=== PATIENT | male | born 1955 | race Caucasian/White ===

== ENCOUNTER 2021-06-14 21:20 | Inpatient (IN) | payer OTHER ==
[2021-06-15] MEDS ORDERED: Dextrose 50% Abboject 50 ML SYRINGE IVP PRN (02:45)
[2021-06-15] MEDS ORDERED: Dextrose 5% in Water 1,000 ML IV PRN (02:45)
[2021-06-15 05:54] LABS: ALT (SGPT) 24 U/L (8-55); AST (SGOT) 30 U/L (5-34); Albumin 3.3 g/dL (3.4-4.8); Alkaline Phosphatase 91 U/L (40-110); Anion Gap 16 mmol/L (10-20); BUN (Urea Nitrogen) 61 mg/dL (8.4-25.7); Bilirubin, Total 0.3 mg/dL (0.2-1.2); Calc. Creatinine Clearance 35 mL/min (70-130); Calcium 8.4 mg/dL (7.8-10.44); Carbon Dioxide 24 mmol/L (23-31); Chloride 93 mmol/L (98-107); Globulin 3.3 g/dL (2.4-3.5); Glucose 79 mg/dL (80-115); Potassium 3.6 mmol/L (3.5-5.1); Protein, Total 6.6 g/dL (5.8-8.1); Sodium 129 mmol/L (136-145)
[2021-06-15 05:55] LABS: Band 15 % (5-11); Hemoglobin 11.3 g/dL (14.0-18.0); Lymphocytes 20 % (21-51); MDiff Complete? YES; Mean Corpuscular HGB CONC 33.5 g/dL (32.0-36.0); Mean Corpuscular Hemoglobin 28.8 pg (27.0-31.0); Mean Corpuscular Volume 86.2 fL (78.0-98.0); Mean Platelet Volume 6.6 fL (7.4-10.4); Metamyelocyte 1 % (0-0); Monocytes 6 % (0-10); Neutrophil 58 % (42-75); Platelet Count 140 thou/uL (130-400); Platelet Morphology Comment Appears Adequate; RBC Distribution Width 11.5 % (11.5-14.5); RBC Morphology Normal; Red Blood Cell (RBC) Count 3.91 mill/uL (4.70-6.10); White Blood Cell (WBC) Count 3.9 thou/uL (4.8-10.8)
[2021-06-15] MEDS ORDERED: Losartan Potassium 50 MG TAB PO SCH (09:00)
[2021-06-15] MEDS ORDERED: Hydrochlorothiazide 25 MG TAB PO SCH (09:00)
[2021-06-15] MEDS: glyBURIDE 5 MG TAB PO SCH ×2 (10:05→16:16)
[2021-06-15] MEDS: FLUoxetine HCl 20 MG CAP PO SCH (10:05)
[2021-06-15] MEDS: Carvedilol 6.25 MG TAB PO SCH ×2 (10:05→21:09)
[2021-06-15] MEDS: HumaLOG 300 UNITS/3 ML VIAL SC PRN ×2 (12:28→17:03)
[2021-06-15] MEDS: Lantus 1000 UNITS/10 ML VIAL SC SCH (21:08)
[2021-06-15] MEDS: Zolpidem Tartrate 5 MG TAB PO PRN (21:08)
[2021-06-15] MEDS: OLANZapine 5 MG TAB PO SCH (21:08)
[2021-06-16 06:48] LABS: Anion Gap 16 mmol/L (10-20); BUN (Urea Nitrogen) 72 mg/dL (8.4-25.7); Calc. Creatinine Clearance 33 mL/min (70-130); Calcium 8.2 mg/dL (7.8-10.44); Carbon Dioxide 22 mmol/L (23-31); Chloride 95 mmol/L (98-107); Glucose 76 mg/dL (80-115); Potassium 3.4 mmol/L (3.5-5.1); Sodium 130 mmol/L (136-145)
[2021-06-16] MEDS: glyBURIDE 5 MG TAB PO SCH ×2 (08:17→17:39)
[2021-06-16] MEDS: Carvedilol 6.25 MG TAB PO SCH ×2 (08:17→23:17)
[2021-06-16] MEDS: FLUoxetine HCl 20 MG CAP PO SCH (08:17)
[2021-06-16] MEDS ORDERED: Potassium Chloride 20 MEQ TAB PO SCH (12:00)
[2021-06-16 12:39] LABS: Cardiac Risk 6.2 (Less than 4.5); LDL Cholesterol, Calculated 67 mg/dL
[2021-06-16] MEDS: Sodium Chloride 0.9% 1,000 ML IV SCH ×2 (14:09→23:00)
[2021-06-16] MEDS: Acetaminophen 500 MG TAB PO PRN ×2 (14:10→23:16)
[2021-06-16 18:57] LABS: Triglycerides 160 mg/dL (Less than 150)
[2021-06-16 19:02] LABS: Cholesterol 121 mg/dl (< 200 Desired); HDL Cholesterol 20 mg/dL (>60 Neg Risk)
[2021-06-16] MEDS: Zolpidem Tartrate 5 MG TAB PO PRN (23:16)
[2021-06-16] MEDS: OLANZapine 5 MG TAB PO SCH (23:17)
[2021-06-16] MEDS: Lantus 1000 UNITS/10 ML VIAL SC SCH (23:20)
[2021-06-16] MEDS: HumaLOG 300 UNITS/3 ML VIAL SC PRN (23:22)
[2021-06-17 06:47] LABS: Anion Gap 14 mmol/L (10-20); BUN (Urea Nitrogen) 71 mg/dL (8.4-25.7); Calc. Creatinine Clearance 36 mL/min (70-130); Calcium 8.4 mg/dL (7.8-10.44); Carbon Dioxide 24 mmol/L (23-31); Chloride 95 mmol/L (98-107); Glucose 173 mg/dL (80-115); Potassium 4.2 mmol/L (3.5-5.1); Sodium 129 mmol/L (136-145)
[2021-06-17] MEDS: HumaLOG 300 UNITS/3 ML VIAL SC PRN ×3 (07:18→20:40)
[2021-06-17] MEDS: glyBURIDE 5 MG TAB PO SCH ×2 (08:19→17:30)
[2021-06-17] MEDS: Carvedilol 6.25 MG TAB PO SCH ×3 (08:21→20:12)
[2021-06-17] MEDS: FLUoxetine HCl 20 MG CAP PO SCH (08:22)
[2021-06-17] MEDS: Sodium Chloride 0.9% 1,000 ML IV SCH ×3 (09:20→20:13)
[2021-06-17] MEDS ORDERED: Dexamethasone 4 MG TAB PO SCH (13:45)
[2021-06-17] MEDS: Albuterol Sulfate 2.5 mg/3 ml Neb NEB PRN ×2 (14:02→20:45)
[2021-06-17] MEDS: OLANZapine 5 MG TAB PO SCH (20:12)
[2021-06-17] MEDS: Tamsulosin HCl 0.4 MG CAP PO SCH (20:12)
[2021-06-17] MEDS: Lantus 1000 UNITS/10 ML VIAL SC SCH (20:40)
[2021-06-17] MEDS: Zolpidem Tartrate 5 MG TAB PO PRN (20:46)
[2021-06-17 21:50] LABS: Hemoglobin A1c 11.8 % (4.0-6.0)
[2021-06-18] MEDS: Sodium Chloride 0.9% 1,000 ML IV SCH ×3 (03:47→22:50)
[2021-06-18] MEDS: HumaLOG 300 UNITS/3 ML VIAL SC PRN ×4 (06:03→21:27)
[2021-06-18] MEDS ORDERED: HumaLOG 300 UNITS/3 ML VIAL SC PRN (07:00)
[2021-06-18 07:56] LABS: Anion Gap 15 mmol/L (10-20); BUN (Urea Nitrogen) 66 mg/dL (8.4-25.7); Calc. Creatinine Clearance 42 mL/min (70-130); Calcium 8.3 mg/dL (7.8-10.44); Carbon Dioxide 21 mmol/L (23-31); Chloride 94 mmol/L (98-107); Glucose 438 mg/dL (80-115); Potassium 4.2 mmol/L (3.5-5.1); Sodium 126 mmol/L (136-145)
[2021-06-18] MEDS: Carvedilol 6.25 MG TAB PO SCH ×2 (08:42→21:02)
[2021-06-18] MEDS: FLUoxetine HCl 20 MG CAP PO SCH (08:42)
[2021-06-18] MEDS: Dexamethasone 4 MG TAB PO SCH (08:42)
[2021-06-18] MEDS: glyBURIDE 5 MG TAB PO SCH ×2 (08:43→17:59)
[2021-06-18] MEDS ORDERED: Lantus 1000 UNITS/10 ML VIAL SC SCH (18:45)
[2021-06-18] MEDS: OLANZapine 5 MG TAB PO SCH (20:45)
[2021-06-18] MEDS: Tamsulosin HCl 0.4 MG CAP PO SCH (20:46)
[2021-06-18] MEDS: Acetaminophen 500 MG TAB PO PRN (21:02)
[2021-06-18] MEDS: Zolpidem Tartrate 5 MG TAB PO PRN (21:02)
[2021-06-18] MEDS: Albuterol Sulfate 2.5 mg/3 ml Neb NEB PRN (21:09)
[2021-06-19] MEDS: HumaLOG 300 UNITS/3 ML VIAL SC PRN ×3 (05:31→17:32)
[2021-06-19 08:04] LABS: Anion Gap 13 mmol/L (10-20); BUN (Urea Nitrogen) 57 mg/dL (8.4-25.7); Calc. Creatinine Clearance 47 mL/min (70-130); Calcium 8.7 mg/dL (7.8-10.44); Carbon Dioxide 23 mmol/L (23-31); Chloride 103 mmol/L (98-107); Glucose 291 mg/dL (80-115); Potassium 4.2 mmol/L (3.5-5.1); Sodium 135 mmol/L (136-145)
[2021-06-19] MEDS: Carvedilol 6.25 MG TAB PO SCH ×2 (08:21→21:22)
[2021-06-19] MEDS: Dexamethasone 4 MG TAB PO SCH (08:21)
[2021-06-19] MEDS: FLUoxetine HCl 20 MG CAP PO SCH (08:21)
[2021-06-19] MEDS: glyBURIDE 5 MG TAB PO SCH ×2 (08:21→15:28)
[2021-06-19] MEDS: Sodium Chloride 0.9% 1,000 ML IV SCH (08:22)
[2021-06-19] MEDS ORDERED: Furosemide 40 MG TAB PO SCH (18:00)
[2021-06-19] MEDS ORDERED: Lantus 1000 UNITS/10 ML VIAL SC SCH ×2 (21:00)
[2021-06-19] MEDS: Enoxaparin Sodium 40 MG/0.4 ML SYRINGE SC SCH (21:21)
[2021-06-19] MEDS: Tamsulosin HCl 0.4 MG CAP PO SCH (21:22)
[2021-06-19] MEDS: OLANZapine 5 MG TAB PO SCH (21:23)
[2021-06-19] MEDS: Zolpidem Tartrate 5 MG TAB PO PRN (23:37)
[2021-06-20] MEDS ORDERED: Sodium Chloride 0.9% 10 ML ONE (06:17)
[2021-06-20] MEDS: FLUoxetine HCl 20 MG CAP PO SCH (07:57)
[2021-06-20] MEDS: Dexamethasone 4 MG TAB PO SCH (07:57)
[2021-06-20] MEDS: Carvedilol 6.25 MG TAB PO SCH ×2 (07:58→20:44)
[2021-06-20] MEDS: glyBURIDE 5 MG TAB PO SCH ×2 (07:58→16:24)
[2021-06-20 08:18] LABS: Anion Gap 15 mmol/L (10-20); BUN (Urea Nitrogen) 48 mg/dL (8.4-25.7); Calc. Creatinine Clearance 53 mL/min (70-130); Carbon Dioxide 23 mmol/L (23-31); Chloride 105 mmol/L (98-107); Glucose 107 mg/dL (80-115); Potassium 3.9 mmol/L (3.5-5.1); Sodium 139 mmol/L (136-145)
[2021-06-20] MEDS: Acetaminophen 500 MG TAB PO PRN ×3 (08:48→20:43)
[2021-06-20] MEDS ORDERED: Furosemide 40 MG TAB PO SCH (09:00)
[2021-06-20] MEDS: HumaLOG 300 UNITS/3 ML VIAL SC PRN (17:41)
[2021-06-20] MEDS: OLANZapine 5 MG TAB PO SCH (20:43)
[2021-06-20] MEDS: Enoxaparin Sodium 40 MG/0.4 ML SYRINGE SC SCH (20:45)
[2021-06-20] MEDS: Tamsulosin HCl 0.4 MG CAP PO SCH (20:45)
[2021-06-20] MEDS ORDERED: Lantus 1000 UNITS/10 ML VIAL SC SCH (21:00)
[2021-06-20] MEDS: Zolpidem Tartrate 5 MG TAB PO PRN (21:36)
[2021-06-21 05:43] LABS: Anion Gap 14 mmol/L (10-20); BUN (Urea Nitrogen) 45 mg/dL (8.4-25.7); Calc. Creatinine Clearance 52 mL/min (70-130); Calcium 8.8 mg/dL (7.8-10.44); Carbon Dioxide 26 mmol/L (23-31); Chloride 100 mmol/L (98-107); Glucose 100 mg/dL (80-115); Potassium 3.8 mmol/L (3.5-5.1); Sodium 136 mmol/L (136-145)
[2021-06-21] MEDS: glyBURIDE 5 MG TAB PO SCH ×2 (08:48→16:16)
[2021-06-21] MEDS: Dexamethasone 4 MG TAB PO SCH (08:49)
[2021-06-21] MEDS: Carvedilol 6.25 MG TAB PO SCH ×2 (08:49→21:59)
[2021-06-21] MEDS: FLUoxetine HCl 20 MG CAP PO SCH (08:49)
[2021-06-21] MEDS: Albuterol Sulfate 2.5 mg/3 ml Neb NEB PRN ×3 (08:55→22:31)
[2021-06-21] MEDS: HumaLOG 300 UNITS/3 ML VIAL SC PRN ×3 (12:47→22:07)
[2021-06-21] MEDS ORDERED: Lantus 1000 UNITS/10 ML VIAL SC SCH (21:00)
[2021-06-21] MEDS: Zolpidem Tartrate 5 MG TAB PO PRN (21:58)
[2021-06-21] MEDS: Tamsulosin HCl 0.4 MG CAP PO SCH (21:59)
[2021-06-21] MEDS: OLANZapine 5 MG TAB PO SCH (21:59)
[2021-06-21] MEDS: Enoxaparin Sodium 40 MG/0.4 ML SYRINGE SC SCH (22:00)
[2021-06-22 06:11] VITALS: BMI 29.2
[2021-06-22] MEDS: HumaLOG 300 UNITS/3 ML VIAL SC PRN (06:17)
[2021-06-22 08:08] VITALS: TEMP 98.1
[2021-06-22] MEDS: Dexamethasone 4 MG TAB PO SCH (08:13)
[2021-06-22] MEDS: FLUoxetine HCl 20 MG CAP PO SCH (08:13)
[2021-06-22] MEDS: glyBURIDE 5 MG TAB PO SCH (08:13)
[2021-06-22 08:14] VITALS: BP 153/74
[2021-06-22] MEDS: Carvedilol 6.25 MG TAB PO SCH (08:14)
[2021-06-22] MEDS: Albuterol Sulfate 2.5 mg/3 ml Neb NEB PRN (09:54)
[2021-06-22 11:16] LABS: #Lymphocytes 0.2 thou/uL (1.20-3.40); #Monocytes 0.6 thou/uL (0.11-0.59); #Neutrophils 11.7 thou/uL (1.40-6.50); %Basophils 0.2 % (0.0-1.0); %Lymphocytes 1.6 % (21.0-51.0); %Monocytes 4.4 % (0.0-10.0); %Neutrophils 93.8 % (42.0-75.0); Hemoglobin 10.7 g/dL (14.0-18.0); Mean Corpuscular HGB CONC 32.4 g/dL (32.0-36.0); Mean Corpuscular Hemoglobin 28.7 pg (27.0-31.0); Mean Corpuscular Volume 88.7 fL (78.0-98.0); Platelet Count 283 thou/uL (130-400); RBC Distribution Width 11.6 % (11.5-14.5); Red Blood Cell (RBC) Count 3.73 mill/uL (4.70-6.10); White Blood Cell (WBC) Count 12.5 thou/uL (4.8-10.8)
[2021-06-22 11:31] LABS: ALT (SGPT) 27 U/L (8-55); AST (SGOT) 18 U/L (5-34); Albumin 2.7 g/dL (3.4-4.8); Alkaline Phosphatase 77 U/L (40-110); Anion Gap 15 mmol/L (10-20); BUN (Urea Nitrogen) 48 mg/dL (8.4-25.7); Bilirubin, Total 0.4 mg/dL (0.2-1.2); Calc. Creatinine Clearance 50 mL/min (70-130); Calcium 8.6 mg/dL (7.8-10.44); Carbon Dioxide 24 mmol/L (23-31); Chloride 100 mmol/L (98-107); Globulin 3.4 g/dL (2.4-3.5); Glucose 393 mg/dL (80-115); Protein, Total 6.1 g/dL (5.8-8.1); Sodium 135 mmol/L (136-145)
== END 2021-06-22 11:40 | disposition short-term general hospital (02) | DRG 177 ==
LOC: OBSVTOIN 06-15 00:38 → NAV ACUTE 06-15 00:38
PROVIDERS: ADMIT Internal Medicine; ATTEND Internal Medicine
PROC: 8E0ZXY6 Isolation (ICD-10-PCS; principal; 2021-06-15)
PROC: 0T9B70Z Drainage of Bladder with Drainage Device, Via Natural or Artificial Opening (ICD-10-PCS; 2021-06-20)
DX: U07.1 COVID-19 (principal); J12.82 Pneumonia due to coronavirus disease 2019; N17.9 Acute kidney failure, unspecified; E87.1 Hypo-osmolality and hyponatremia; N18.4 Chronic kidney disease, stage 4 (severe); R29.6 Repeated falls; E78.5 Hyperlipidemia, unspecified; F25.9 Schizoaffective disorder, unspecified; F79 Unspecified intellectual disabilities; E11.22 Type 2 diabetes mellitus with diabetic chronic kidney disease; N40.1 Benign prostatic hyperplasia with lower urinary tract symptoms; I12.9 Hypertensive chronic kidney disease with stage 1 through stage 4 chronic kidney disease, or unspecified chronic kidney disease; R53.81 Other malaise; E87.6 Hypokalemia; E11.42 Type 2 diabetes mellitus with diabetic polyneuropathy; R33.8 Other retention of urine; Z90.49 Acquired absence of other specified parts of digestive tract; Z90.89 Acquired absence of other organs; Z79.4 Long term (current) use of insulin; Z88.0 Allergy status to penicillin; Z91.013 Allergy to seafood
CPT/HCPCS: 36415; 36416; 71045; 71046; 80048; 80053; 80061; 83036; 83605; 83880; 85025; 85379; 94640; J1650; J1815; J7050; J7611; J8540